=== PATIENT | male | born 1940 | race Caucasian/White ===

== ENCOUNTER → 2017-12-06 08:14 | Outpatient (CLI) | payer MEDICARE, OTHER, SELFPAY ==
[2017-12-06 08:56] LABS: Absolute Lymphocyte Count 1.44 X10^3/ul (0.83-4.51); Absolute Neutrophil Count 4.2 X10^3/uL (2.0-7.7); Basophil# 0.02 X10^3/uL; Basophil% 0.3 % (0-1); Eosinophil# 0.24 X10^3/uL; Eosinophils% 3.6 % (0-5); Hematocrit 48.2 % (40-54); Hemoglobin 15.7 g/dl (13.0-16.5); Lymphocyte # 1.44 X10^3/ul (4.0); Lymphocyte % 21.7 % (19-41); Mean Corp Hgb Conc 32.6 g/gl (32-36); Mean Corpuscular Hgb 28.9 pg (27.0-32.0); Mean Corpuscular Volume 88.8 fL (80-94); Mean Platelet Vol. 10.6 fl (6.2-12.0); Monocyte# 0.67 X10^3/uL; Monocyte% 10.1 % (0-10); Neutrophil # 4.23 X10^3/uL (2.7-7.7); Neutrophil % 63.8 % (47-70); Platelet Count 207 K/mm3 (150-450); RBC Distribution Width CV 14.1 % (11.6-14.6); RBC Distribution Width SD 45.5 fl (35.1-43.9); Red Blood Count 5.43 M/mm3 (4.6-6.2); White Blood Count 6.6 K/mm3 (4.4-11.0)
[2017-12-06 08:59] LABS: POSITIVE COUNT NO; POSITIVE DIFFERENTIAL NO; POSITIVE MORPHOLOGY NO
[2017-12-06 09:22] LABS: ALB/GLOB Ratio 0.9 RATIO (0.9-2.4); AST(SGOT) 23 U/L (15-37); Alanine Aminotransfer ALT/SGPT 26 U/L (16-61); Albumin, Serum 3.3 g/dL (3.2-5.0); Alkaline Phosphatase 69 U/L (45-117); Anion Gap 7 (5-15); BUN 16 mg/dL (7-18); BUN/Creat Ratio 16.9 RATIO (10-20); Calcium,Total 8.1 mg/dL (8.5-10.1); Chloride 106 mmol/L (98-107); Cholesterol 124 mg/dL (200); Creatinine, Serum 0.95 mg/dL (0.70-1.30); EST Glomerular Filtration Rate 82 mL/min (>60); Est Glom Filt Rate - Afr Amer 100 mL/min (>60); Globulin 3.5 g/dL (2.2-4.2); Glucose 119 mg/dL (74-106); High Density Lipoprotein 46 mg/dL; PSA,Total - Annual Screen 1.67 ng/mL (0.00-4.00); Potassium 3.7 mmol/L (3.5-5.1); Protein, Total 6.8 g/dL (6.4-8.2); Sodium Level 140 mmol/L (136-145); Triglycerides 93 mg/dL; Very Low Density Lipoprotein 19 mg/dL (5-40)
[2017-12-06 09:28] LABS: Vitamin D,25 Hydroxy 81.7 ng/mL (29.95-100.01)
== END ==
PROVIDERS: Family Provider Internal Medicine; PCP Internal Medicine; Visit Provider Internal Medicine
DX: Z12.5 Encounter for screening for malignant neoplasm of prostate (principal); E78.00 Pure hypercholesterolemia, unspecified; E55.9 Vitamin D deficiency, unspecified; I11.9 Hypertensive heart disease without heart failure
CPT/HCPCS: 36415; 80053; 80061; 82306; 84153; 85025; G0103

== ENCOUNTER 2017-12-10 17:22 | Emergency (ER) | payer OTHER, MEDICARE, SELFPAY ==
[2017-12-10 17:24] VITALS: BP 157/92; PULSE 78; RESP 16; TEMP 37.1; O2SAT 94; BMI 24.3
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
[2017-12-10] MEDS: Acetaminophen 500 MG Tablet 1000 MG PO (19:24)
[2017-12-10 19:25] VITALS: BP 169/107; PULSE 86; RESP 16; O2SAT 94
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
[2017-12-10 21:11] VITALS: BP 148/102; PULSE 75; RESP 16; O2SAT 94
== END 2017-12-10 21:15 | disposition home or self-care (01) ==
PROVIDERS: Emergency Provider Emergency Medicine; Family Provider Internal Medicine; PCP Internal Medicine
DX: S01.01XA Laceration without foreign body of scalp, initial encounter (principal); V49.88XA Car occupant (driver) (passenger) injured in other specified transport accidents, initial encounter; Y93.89 Activity, other specified; Y92.410 Unspecified street and highway as the place of occurrence of the external cause; I10 Essential (primary) hypertension; Z79.899 Other long term (current) drug therapy
CPT/HCPCS: 12004; 70450; 99285

== ENCOUNTER → 2018-04-12 07:53 | Outpatient (CLI) | payer MEDICARE, OTHER, SELFPAY ==
[2018-04-12 07:58] LABS: Bacteria 0 SEEN /hpf (None Seen); Mucous, Urine 0 SEEN /hpf (<or=2+); Red Blood Cells-Urine 0 SEEN /hpf (0-5); Squamous Epithelial Cells - UA 0 SEEN /hpf (0-5); White Blood Cells 0 SEEN /hpf (0-5)
[2018-04-12 08:59] LABS: Absolute Lymphocyte Count 1.38 X10^3/ul (0.83-4.51); Absolute Neutrophil Count 3.1 X10^3/uL (2.0-7.7); Basophil# 0.02 X10^3/uL; Basophil% 0.4 % (0-1); Eosinophils% 5.5 % (0-5); Hematocrit 47.1 % (40-54); Hemoglobin 15.1 g/dl (13.0-16.5); Lymphocyte # 1.38 X10^3/ul (4.0); Lymphocyte % 25.2 % (19-41); Mean Corp Hgb Conc 32.1 g/gl (32-36); Mean Corpuscular Hgb 28.3 pg (27.0-32.0); Mean Corpuscular Volume 88.4 fL (80-94); Mean Platelet Vol. 10.6 fl (6.2-12.0); Monocyte# 0.66 X10^3/uL; Monocyte% 12.1 % (0-10); Neutrophil # 3.09 X10^3/uL (2.7-7.7); Neutrophil % 56.4 % (47-70); Platelet Count 228 K/mm3 (150-450); RBC Distribution Width CV 14.4 % (11.6-14.6); RBC Distribution Width SD 46.5 fl (35.1-43.9); Red Blood Count 5.33 M/mm3 (4.6-6.2); White Blood Count 5.5 K/mm3 (4.4-11.0)
[2018-04-12 09:00] LABS: Color, Urine Yellow (Yellow); Glucose, Dipstick Normal (Normal); Ketone-Dipstick Negative (Negative); Leukocyte Esterase-Dipstick Negative /ul (Negative); Nitrite-Dipstick Negative (Negative); Occult Blood-Urine Negative /ul (Negative); Protein-Dipstick Negative (Negative); Urine Bilirubin Dipstick Negative (Negative); Urine Clarity Clear (Clear); Urine Urobilinogen Normal (Normal)
[2018-04-12 09:01] LABS: POSITIVE COUNT NO; POSITIVE DIFFERENTIAL NO; POSITIVE MORPHOLOGY NO
[2018-04-12 09:21] LABS: Microalbumin,Random Urine 11.2 mg/L (NO RANGE EST.); Microalbumin:Creatinine Ratio 19.4 mg/g CRE (<30 mg/g CRE)
[2018-04-12 09:26] LABS: ALB/GLOB Ratio 1.1 RATIO (0.9-2.4); AST(SGOT) 24 U/L (15-37); Alanine Aminotransfer ALT/SGPT 30 U/L (16-61); Albumin, Serum 3.6 g/dL (3.2-5.0); Alkaline Phosphatase 67 U/L (45-117); Anion Gap 8 (5-15); BUN 13 mg/dL (7-18); BUN/Creat Ratio 15.3 RATIO (10-20); Calcium,Total 8.5 mg/dL (8.5-10.1); Chloride 106 mmol/L (98-107); Cholesterol 139 mg/dL (200); Creatinine, Serum 0.85 mg/dL (0.70-1.30); EST Glomerular Filtration Rate 93 mL/min (>60); Est Glom Filt Rate - Afr Amer 113 mL/min (>60); Globulin 3.4 g/dL (2.2-4.2); Glucose 106 mg/dL (74-106); High Density Lipoprotein 47 mg/dL; Potassium 3.9 mmol/L (3.5-5.1); Sodium Level 142 mmol/L (136-145); Triglycerides 67 mg/dL; Very Low Density Lipoprotein 13 mg/dL (5-40)
[2018-04-12 09:31] LABS: Hemoglobin A1c 6.2 % (4.2-6.3)
[2018-04-13 08:34] LABS: Vitamin D,25 Hydroxy 50.2 ng/mL (29.95-100.01)
== END ==
PROVIDERS: Family Provider Internal Medicine; PCP Internal Medicine; Visit Provider Internal Medicine
DX: E78.4 Other hyperlipidemia (principal); I11.9 Hypertensive heart disease without heart failure; E55.9 Vitamin D deficiency, unspecified; E11.9 Type 2 diabetes mellitus without complications
CPT/HCPCS: 36415; 80053; 80061; 81001; 82043; 82306; 82570; 83036; 85025

== ENCOUNTER → 2018-06-14 09:49 | Outpatient (CLI) | payer MEDICARE, OTHER, SELFPAY ==
--- NOTE | 2018-06-14 09:52 | CDU_ITS ---
Reason For Study: stenosis Rt. Velocities/BP Lt. Velocities/BP Prox CCA 92.6/12.9 cm/sec. Prox CCA 90.9/15.8 cm/sec. Mid CCA 68.6/14.7 cm/sec. Mid CCA 80.3/17.0 cm/sec. Dist CCA 57.5/15.2 cm/sec. Dist CCA 63.9/14.1 cm/sec. Prox ICA 45.1/11.7 cm/sec. Prox ICA 59.8/14.7 cm/sec. Mid ICA 47.5/17.0 cm/sec. Mid ICA 56.9/19.3 cm/sec. Dist ICA 64.5/22.9 cm/sec. Dist ICA 52.2/17.0 cm/sec. Rt. ICA/CCA = .9. Lt. ICA/CCA = .7. Prox ECA 57.5/9.38 cm/sec. Prox ECA 76.2/11.7 cm/sec. Rt. Vert. 43.4/13.5 cm/sec. Lt. Vert. 29.1/7.46 cm/sec. Right Extracranial There is intimal thickening but no significant atherosclerotic plaque noted in the right common carotid artery. There is heterogeneous, irregular atherosclerotic plaque noted in the right internal carotid artery. There is intimal thickening but no significant atherosclerotic plaque noted in the right external carotid artery. Antegrade flow is noted in the right vertebral artery. Left Extracranial There is intimal thickening but no significant atherosclerotic plaque noted in the left common carotid artery. There is intimal thickening but no significant atherosclerotic plaque noted in the left internal carotid artery. There is intimal thickening but no significant atherosclerotic plaque noted in the left external carotid artery. Antegrade flow is noted in the left vertebral artery. There is heterogeneous, irregular atherosclerotic plaque noted in the left bulb. Hypoehoic area in the left thyroid measuring .408 x .753 cm. Area is non vascular. Procedure Carotid Duplex 97647. The exam was diagnostic. Exam performed in department. Interpretation Summary Mild (<50%) stenosis right extracranial internal carotid. No significant atherosclerotic plaque or stenosis noted in the left internal carotid artery. Flow within the vertebral arteries is antegrade bilaterally. Heterogeneous, irregular atherosclerotic plaque is noted in the left carotid bulb, which does not appear to be hemodynamically significant. A non-vascular, hypoechoic structure is noted in the left thyroid lobe, measuring 0.408 cm x 0.753 cm. Clinical correlation is advised. Ordering Physician: Adrienne Cummings Referring Physician: Adrienne Cummings Performed By: Desmond Argueta RVT
== END ==
PROVIDERS: Family Provider Internal Medicine; PCP Internal Medicine; Referring Provider Internal Medicine; Visit Provider Internal Medicine
DX: I65.23 Occlusion and stenosis of bilateral carotid arteries (principal)
CPT/HCPCS: 93880

== ENCOUNTER → 2018-06-30 10:35 | Outpatient (CLI) | payer MEDICARE, OTHER, SELFPAY ==
--- NOTE | 2018-06-30 10:37 | US_ITS ---
STUDY: THYROID ULTRASOUND REASON FOR EXAM: Male, 78 years old. Thyroid nodule TECHNIQUE: Transverse and longitudinal ultrasound evaluation of the thyroid was performed with real-time and static perez-scale imaging. COMPARISON: None. FINDINGS: RIGHT LOBE: The right lobe of the thyroid gland measures 3.8 x 1.9 x 1.2 cm. There is a heterogeneous echotexture. There is a cystic nodule in the mid pole measuring 3.6 x 1.9 x 3.8 mm. LEFT LOBE: The left lobe of the thyroid gland measures 4.5 x 1.5 x 1.5 cm. There is a heterogeneous echotexture. There is a hypoechoic nodule in the upper pole measuring 6.2 x 4.3 x 5.3 mm. ISTHMUS: The isthmus measures 8.0 mm. The regional lymph nodes are unremarkable. US/Thyroid IMPRESSION: The thyroid is diffusely heterogeneous. There are small nodules in each lobe without suspicious features. A follow-up thyroid ultrasound can be obtained in six months to document stability. Electronically Signed: Kimberly Davis MD at 0:35 EDT Tel Direct: [phone], Service support ,
== END ==
PROVIDERS: Family Provider Internal Medicine; PCP Internal Medicine; Referring Provider Internal Medicine; Visit Provider Internal Medicine
DX: E04.1 Nontoxic single thyroid nodule (principal)
CPT/HCPCS: 76536

== ENCOUNTER → 2018-09-06 13:32 | Outpatient (CLI) | payer SELFPAY ==
--- NOTE | 2018-09-06 13:38 | CT_ITS ---
STUDY: CT CHEST WITHOUT CONTRAST REASON FOR EXAM: Male, 78 years old. Calcium scoring examination. Cardiac over read examination. RADIATION DOSAGE (If Supplied By Facility): CTDIvol = ( 12.19 ) mGy, DLP = ( 268.17 ) mGycm TECHNIQUE: Transaxial imaging was performed without the administration of intravenous contrast material. Individualized dose optimization techniques were used for this CT. COMPARISON: None. FINDINGS: The lungs are normal. There is no demonstrated pleural abnormality. There are calcifications of the coronary arteries. There are multiple small lymph nodes within the mediastinum, which are normal in size and morphology most compatible with reactive lymph hyperplasia. Normal hilar regions. Normal unenhanced pulmonary arteries. There is atherosclerotic calcification of the aortic arch . Normal osseous structures. There is no demonstrated abnormality of the visualized upper abdomen. CT/Limited Chest CT w/CCTA IMPRESSION: No acute abnormality is seen. Electronically Signed: Livan Meléndez MD at 14:38 EST Tel [phone], Service support ,
[2018-09-06 13:55] VITALS: BP 164/83; PULSE 53; RESP 16; O2SAT 97; BMI 26.2
--- NOTE | 2018-09-07 18:33 | CA.SCORE ---
Calcium Scoring Date of Study:: 09/07/18 Coronary Calcium Scoring: Coronary calcium score: 30.2 Conclusion: Coronary calcium score: 30.2 Results: The patient underwent high-resolution CT imaging of the chest on 09/06/2018 with attention to the coronary arteries. The coronary arteries were analyzed for the presence and extent of coronary artery calcification using coronary calcification quantification software. The patient was reported as tolerating the procedure well. The coronary calcium was reported at 30.2. A coronary calcium score of 30.2, according to pre-published reference tables, would be indicative of mild plaque burden and the likelihood of minimal to mild coronary artery stenosis. Impression: Coronary calcium score: 30.2 This note was generated with [employer]otion Mediaation software. It may contain incorrect words, spelling, and punctuation that were not noted in checking the note before signing.
== END ==
PROVIDERS: Family Provider Internal Medicine; PCP Internal Medicine; Referring Provider Internal Medicine; Visit Provider Internal Medicine
DX: E78.5 Hyperlipidemia, unspecified (principal)
CPT/HCPCS: 75571; 76380

== ENCOUNTER → 2018-12-07 08:46 | Outpatient (CLI) | payer MEDICARE, OTHER, SELFPAY ==
[2018-09-06 13:55] VITALS: BMI 26.2
[2018-12-07 09:07] LABS: Absolute Lymphocyte Count 1.44 X10^3/ul (0.83-4.51); Absolute Neutrophil Count 2.6 X10^3/uL (2.0-7.7); Basophil# 0.02 X10^3/uL; Basophil% 0.4 % (0-1); Eosinophil# 0.18 X10^3/uL; Eosinophils% 3.8 % (0-5); Hematocrit 46.5 % (40-54); Hemoglobin 15.5 g/dl (13.0-16.5); Lymphocyte # 1.44 X10^3/ul (4.0); Lymphocyte % 30.8 % (19-41); Mean Corp Hgb Conc 33.3 g/gl (32-36); Mean Corpuscular Hgb 29.2 pg (27.0-32.0); Mean Corpuscular Volume 87.6 fL (80-94); Mean Platelet Vol. 10.5 fl (6.2-12.0); Monocyte# 0.48 X10^3/uL; Monocyte% 10.3 % (0-10); Neutrophil # 2.55 X10^3/uL (2.7-7.7); Neutrophil % 54.5 % (47-70); Platelet Count 216 K/mm3 (150-450); RBC Distribution Width CV 14.3 % (11.6-14.6); RBC Distribution Width SD 45.7 fl (35.1-43.9); Red Blood Count 5.31 M/mm3 (4.6-6.2); White Blood Count 4.7 K/mm3 (4.4-11.0)
[2018-12-07 09:09] LABS: POSITIVE COUNT NO; POSITIVE DIFFERENTIAL NO; POSITIVE MORPHOLOGY NO
[2018-12-07 09:32] LABS: Hemoglobin A1c 6.3 % (4.2-6.3)
[2018-12-07 09:33] LABS: ALB/GLOB Ratio 1.2 RATIO (0.9-2.4); AST(SGOT) 26 U/L (15-37); Alanine Aminotransfer ALT/SGPT 28 U/L (16-61); Albumin, Serum 3.5 g/dL (3.2-5.0); Alkaline Phosphatase 74 U/L (45-117); Anion Gap 3 (5-15); BUN 12 mg/dL (7-18); BUN/Creat Ratio 13.5 RATIO (10-20); Calcium,Total 8.1 mg/dL (8.5-10.1); Chloride 107 mmol/L (98-107); Cholesterol 124 mg/dL (200); Creatinine, Serum 0.89 mg/dL (0.70-1.30); EST Glomerular Filtration Rate 89 mL/min (>60); Est Glom Filt Rate - Afr Amer 107 mL/min (>60); Glucose 107 mg/dL (74-106); High Density Lipoprotein 51 mg/dL; PSA,Total - Annual Screen 1.62 ng/mL (0.00-4.00); Protein, Total 6.5 g/dL (6.4-8.2); Sodium Level 139 mmol/L (136-145); Triglycerides 75 mg/dL; Very Low Density Lipoprotein 15 mg/dL (5-40)
== END ==
PROVIDERS: Family Provider Internal Medicine; PCP Internal Medicine; Referring Provider Internal Medicine; Visit Provider Internal Medicine
DX: Z12.5 Encounter for screening for malignant neoplasm of prostate (principal); E78.00 Pure hypercholesterolemia, unspecified; E11.9 Type 2 diabetes mellitus without complications
CPT/HCPCS: 36415; 80053; 80061; 83036; 84153; 85025; G0103

== ENCOUNTER → 2018-12-27 08:30 | Outpatient (CLI) | payer MEDICARE, OTHER, SELFPAY ==
[2018-09-06 13:55] VITALS: BMI 26.2
== END ==
PROVIDERS: Family Provider Internal Medicine; PCP Internal Medicine; Referring Provider Nurse Practitioner Family; Visit Provider Nurse Practitioner Family
DX: I49.3 Ventricular premature depolarization (principal)
CPT/HCPCS: 93225; 93226

== ENCOUNTER 2019-01-16 07:20 | Day surgery (SDC) | payer MEDICARE, OTHER, SELFPAY ==
[2018-12-30 08:40] VITALS: BMI 26.2
[2019-01-16] VITALS (8 sets, daily range): BP systolic 136–153; BP diastolic 77–81; PULSE 52–63; RESP 16; TEMP 36.3–36.7; O2SAT 92–98; BMI 25.5
--- NOTE | 2019-01-16 08:17 | PCM.HP.BLA ---
History and Physical Date of Admission: 01/16/19 [facility] [address] [place] [address] OFFICE VISIT Date of Service: 12/30/18 MR#: [id number] Acct: [id number] Name: JAIME BERRIOS Rep #: [id number] : 1940 Provider: Darian Colon MD Age/Sex: 78/M Location: [facility] Status: Signed Intake Vital Signs 12/30/18 Body Mass Index (BMI) 26.2 12/30/18 Height 5 ft 9 in 12/30/18 Weight: 178 lb 12/30/18 Body Mass Index (BMI) 26.2 12/30/18 Blood Pressure 139/74 H 12/30/18 Blood Pressure Location Rt brachial 12/30/18 Blood Pressure Position Sitting 12/30/18 Respiratory Rate 18 12/30/18 Pulse Rate 51 L 12/30/18 Pulse Source Monitor 12/30/18 Temperature 98.2 F 12/30/18 Temperature Source Oral 12/30/18 Pulse Ox 95 12/30/18 Oxygen Delivery Method room air Intake Visit Reasons: HX of Colon Polyps 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 People Required: No Is patient in pain?: No Allergies No Known Allergies Allergy (Verified 12/30/18 08:38) Medications Amlodipine [Norvasc] 10 mg PO DAILY 07/21/13 [History Confirmed 12/30/18] Lisinopril [Zestril] 20 mg PO BID 07/21/13 [History Confirmed 12/30/18] Simvastatin [Zocor] 40 mg PO QHS 07/21/13 [History Confirmed 12/30/18] metoprolol succinate ER 50 mg tablet,extended release 24 hr 50 mg PO QDAY #90 tab 02/21/18 [Rx Confirmed 12/30/18] cholecalciferol (vitamin D3) 4,000 unit capsule 4,000 unit PO DAILY 12/30/18 [History Confirmed 12/30/18] omega 0-ieg-jaj-fish oil 1,000 mg (120 mg-180 mg) capsule 1 cap PO DAILY 12/30/18 [History Confirmed 12/30/18] [facility] Medical History Wide-complex tachycardia (Acute) Carotid stenosis (Acute) Hyperlipidemia (Chronic) Premature ventricular contraction (Acute) HTN (hypertension) (Chronic) TIA (transient ischemic attack) (Acute) BPH without urinary obstruction (Chronic) Surgical History History of hernia repair (Resolved) History of prostate surgery (Resolved) History of transurethral resection of prostate (Resolved) Family History Mother CAD (coronary artery disease) Social History Smoking Status: Never smoker alcohol intake: current details: occasional substance use type: does not use HPI HPI HPI: JAIME BERRIOS, is a 78 M who presents to the office today for HPI HPI HPI: JAIME BERRIOS, is a 78 M who presents to the office today for evaluation for colonoscopy. Patient had a colonoscopy in October 2015 where he was noted to have tubular adenoma of the transverse colon. Patient states that he has been moving his bowels. Patient states that he has had no abdominal pain. And he has had no melena or hematochezia. ROS General General: No weight change, appetite, fatigue, colon cancer, breast cancer or weakness HEENT HEENT: No difficulty swallowing, eye injury, eye surgery, swollen glands or hoarseness Endo Endocrine: No thyroid disease, diabetes mellitus, thyroid cancer, Hair loss, heat intolerance or cold intolerance Skin Skin: No rash or changing moles Breast Breast: No left breast lump, right breast lump, nipple discharge, breast pain, abnormal mammogram, abnormal US or breast enlargement Musc Musculoskeletal: No back problems, arthritis, rheumatoid arthritis, gout or joint pain Cardio Cardiovascular: No murmur, pacemaker, heart disease, atrial fibrillation, high blood pressure, heart attack, heart stent, palpitations, shortness of breat with exertion or chest pain Psych Psychiatric: No depression, anxiety or hearing voices Resp Respiratory: No shortness of breath, No sleep apnea, No cough, No COPD, No asthma, No emphysema, No wheezing Gastro Gastrointestinal: No abdominal pain, No nausea or vomiting, No diarrhea, No constipation, No blood in stool, No acid reflux, No hemorrhoids, No ulcers, No gallbladder problem, No black,tarry stools Levi Hematologic: No blood thinners, No blood disorders, No bleeding, No anemia, No blood clots Neuro Neurologic: No system reviewed and no additional complaints, except as docu, No as per HPI, No abnormal walking, No abnormal hearing, No abnormal movements, No abnormal speech, No behavioral changes, No burning sensations, No confusion, No seizure-like activity, No unsteadiness, No dizziness, No localized weakness, No frequent falls, No headache(s), No lack of coordination, No loss of vision, No memory loss, No numbness, No other visual disturbances, No radiating pain, No restless legs, No sensory deficit, No fainting, No tingling, No tremor(s), No weakness, No other Exam Const General: no acute distress, well developed, well hydrated Orientation: oriented to person, oriented to place, oriented to time [facility] Head: normocephalic, atraumatic Ears: external ears normal Mouth: moist mucous membranes Eyes Sclera: sclerae normal Pupils: normal by confrontation Neck Neck: no lymphadenopathy noted Neck mass: No Thyroid: thyroid normal, symmetrical Chest Chest palpation & inspection: normal inspection of the chest Breast Palpation: No nipple discharge Resp Effort & Inspection: normal respiratory effort Auscultation: clear to auscultation bilaterally Percussion: percussion normal Cardio Rate: regular rate Rhythm: regular rhythm Heart Sounds: no murmurs GI Palpation: soft, no hepatosplenomegaly, no masses, nontender Rectal Exam: other Other: Rectal exam deferred. Extrem General: normal to inspection, no clubbing, cyanosis or edema Assessment & Plan Problems 1. History of colon polyps Z86.010 Plan I have discussed the above with the patient. I have offered the patient colonoscopy for evaluation. I have explained the risks/benefits of the procedure and described the procedure. I have discussed the risks with the patient, including but not limited to: infection, bleeding, perforation of the GI tract requiring emergency surgery, inability to complete the procedure, injury to any internal organs, complications of anesthesia, etc. - the patient understands and agrees to proceed. I have answered all the patient's questions to the patient's satisfaction and the patient has no further questions. The patient has been given instructions for the colon cleansing preparation. Medications New: omega 2-dci-rlm-fish oil 1,000 mg (120 mg-180 mg) (Fish Oil) 1 cap PO DAILY cholecalciferol (vitamin D3) 4,000 units PO DAILY Coding Level of Care Code Off vis,est,level 3 Diagnoses History of colon polyps Z86.010 12/30/18 1125 <Electronically signed by Darian Colon MD> Date Darian Colon MD Cosign Signature: Date (if applicable) CC: Adrienne Cummings DO ~ I have re-examined the patient. There are no clinical changes since date of exam.
--- NOTE | 2019-01-16 08:52 | OP.ENDO_ITS ---
01/16/2019 Adrienne Cummings Re : Colonoscopy procedure for Edilson Cummings This procedure was performed on Wednesday, January 16, 2019. My impressions and recommendations are as follows: Impressions : - Diverticulosis in the sigmoid colon and in the descending colon. No specimens collected. - The examination was otherwise normal. Recommendations : - Discharge patient to home. - Resume previous diet. - Continue present medications. - Repeat colonoscopy in 10 years for screening purposes. - Return to primary care physician PRN. My findings are described in the full procedure note, which is enclosed. If I can be of further assistance, please feel free to contact me at Doctor phone number(s): , Fax: [phone], Work: . Sincerely, MD Darian Clement MD 01/16/2019 8:52:17 AM This report has been signed electronically.
== END 2019-01-16 09:49 | disposition home or self-care (01) ==
LOC: EN 07:21 → AC 07:22
PROVIDERS: Family Provider Internal Medicine; PCP Internal Medicine; Referring Provider Internal Medicine; Visit Provider Surgery
PROC: 0DJD8ZZ Inspection of Lower Intestinal Tract, Via Natural or Artificial Opening Endoscopic (ICD-10-PCS; CPT 45378; principal; 2019-01-16 08:25)
DX: Z86.010 Personal history of colon polyps (principal); K57.30 Diverticulosis of large intestine without perforation or abscess without bleeding; E78.00 Pure hypercholesterolemia, unspecified; I49.1 Atrial premature depolarization; I49.3 Ventricular premature depolarization; I65.29 Occlusion and stenosis of unspecified carotid artery; I10 Essential (primary) hypertension; N40.0 Benign prostatic hyperplasia without lower urinary tract symptoms; Z79.899 Other long term (current) drug therapy; Z86.73 Personal history of transient ischemic attack (TIA), and cerebral infarction without residual deficits
CPT/HCPCS: G0105; J7120; J1610

== ENCOUNTER → 2019-04-12 07:49 | Outpatient (CLI) | payer MEDICARE, OTHER, SELFPAY ==
[2019-01-19 14:26] VITALS: BMI 25.0
[2019-04-12 08:32] LABS: Absolute Lymphocyte Count 1.21 X10^3/uL (0.83-4.51); Absolute Neutrophil Count 3.4 X10^3/uL (2.0-7.7); Basophil# 0.04 X10^3/uL; Basophil% 0.7 % (0-1); Eosinophils% 3.6 % (0-5); Hematocrit 45.6 % (40-54); Hemoglobin 14.8 g/dL (13.0-16.5); Lymphocyte # 1.21 X10^3/ul (4.0); Mean Corp Hgb Conc 32.5 g/dL (32-36); Mean Corpuscular Volume 89.4 fL (80-94); Mean Platelet Vol. 10.6 fl (6.2-12.0); Monocyte# 0.59 X10^3/uL; Monocyte% 10.7 % (0-10); NRBC Flagged by Analyzer 0 % (0-5); Neutrophil # 3.44 X10^3/uL (2.7-7.7); Neutrophil % 62.6 % (47-70); Platelet Count 221 K/mm3 (150-450); RBC Distribution Width CV 13.8 % (11.6-14.6); RBC Distribution Width SD 44.7 fl (35.1-43.9); White Blood Count 5.5 K/mm3 (4.4-11.0)
[2019-04-12 08:53] LABS: Microalbumin,Random Urine 7.2 mg/L (NO RANGE EST.); Microalbumin:Creatinine Ratio 20.2 mg/g CRE (<30 mg/g CRE)
[2019-04-12 09:01] LABS: Vitamin D,25 Hydroxy 35.4 ng/mL (29.95-100.01)
[2019-04-12 09:02] LABS: Hemoglobin A1c 6.3 % (4.2-6.3)
[2019-04-12 09:04] LABS: AST(SGOT) 23 U/L (15-37); Alanine Aminotransfer ALT/SGPT 29 U/L (16-61); Albumin, Serum 3.2 g/dL (3.2-5.0); Alkaline Phosphatase 65 U/L (45-117); Anion Gap 8 (5-15); BUN 18 mg/dL (7-18); BUN/Creat Ratio 21.6 RATIO (10-20); Chloride 106 mmol/L (98-107); Cholesterol 135 mg/dL (200); Creatinine, Serum 0.83 mg/dL (0.70-1.30); EST Glomerular Filtration Rate 95 mL/min (>60); Est Glom Filt Rate - Afr Amer 115 mL/min (>60); Globulin 3.2 g/dL (2.2-4.2); Glucose 111 mg/dL (74-106); High Density Lipoprotein 49 mg/dL; Protein, Total 6.4 g/dL (6.4-8.2); Sodium Level 142 mmol/L (136-145); Thyroid Stim Hormone (TSH) 1.44 uIU/mL (0.358-3.74); Triglycerides 81 mg/dL; Very Low Density Lipoprotein 16 mg/dL (5-40)
== END ==
PROVIDERS: Family Provider Internal Medicine; PCP Internal Medicine; Referring Provider Internal Medicine; Visit Provider Internal Medicine
DX: E55.9 Vitamin D deficiency, unspecified (principal); E04.1 Nontoxic single thyroid nodule; E11.9 Type 2 diabetes mellitus without complications; E78.00 Pure hypercholesterolemia, unspecified
CPT/HCPCS: 36415; 80053; 80061; 82043; 82306; 82570; 83036; 84443; 85025

== ENCOUNTER → 2019-07-05 07:59 | Outpatient (CLI) | payer MEDICARE, OTHER, SELFPAY ==
[2019-01-19 14:26] VITALS: BMI 25.0
--- NOTE | 2019-07-05 08:02 | CDU_ITS ---
Reason For Study: STENOSIS Rt. Velocities/BP Lt. Velocities/BP Prox CCA 89/15 cm/sec. Prox CCA 96/21 cm/sec. Mid CCA 79/13 cm/sec. Mid CCA 105/21 cm/sec. Dist CCA 58/13 cm/sec. Dist CCA 76/19 cm/sec. Prox ICA 49/12 cm/sec. Prox ICA 69/13 cm/sec. Mid ICA 62/20 cm/sec. Mid ICA 62/18 cm/sec. Dist ICA 54/17 cm/sec. Dist ICA 80/24 cm/sec. Rt. ICA/CCA = .7. Lt. ICA/CCA = .8. Prox ECA 72/7 cm/sec. Prox ECA 107/16 cm/sec. Rt. Vert. 62/16 cm/sec. Lt. Vert. 46/8 cm/sec. Right Extracranial There is homogeneous, smooth atherosclerotic plaque noted in the right common carotid artery. There is heterogeneous, smooth atherosclerotic plaque noted in the right internal carotid artery. There is homogeneous, smooth atherosclerotic plaque noted in the right external carotid artery. Antegrade flow is noted in the right vertebral artery. Left Extracranial There is homogeneous, smooth atherosclerotic plaque noted in the left common carotid artery. There is heterogeneous, irregular atherosclerotic plaque noted in the left internal carotid artery. There is homogeneous, smooth atherosclerotic plaque noted in the left external carotid artery. Antegrade flow is noted in the left vertebral artery. Procedure Carotid Duplex [id number]. Exam performed in department. Interpretation Summary Mild (<50%) stenosis right extracranial internal carotid. Mild (<50%) stenosis left extracranial internal carotid. Flow within the vertebral arteries is antegrade bilaterally. Ordering Physician: Adrienne Cummings Referring Physician: Adrienne Cummings Performed By: Mily Spears, RDCS, RVT
== END ==
PROVIDERS: Family Provider Internal Medicine; PCP Internal Medicine; Referring Provider Internal Medicine; Visit Provider Internal Medicine
DX: I65.23 Occlusion and stenosis of bilateral carotid arteries (principal); E04.1 Nontoxic single thyroid nodule
CPT/HCPCS: 93880

== ENCOUNTER → 2019-07-18 08:29 | Outpatient (CLI) | payer MEDICARE, OTHER, SELFPAY ==
[2019-01-19 14:26] VITALS: BMI 25.0
--- NOTE | 2019-07-18 08:31 | US_ITS ---
STUDY: THYROID ULTRASOUND REASON FOR EXAM: Male, 79 years old. Nodule TECHNIQUE: Ultrasound evaluation of the thyroid was performed with real-time and static perez-scale imaging. COMPARISON: None. FINDINGS: Right Lobe: 4.6 x 1.3 x 1.7 cm. Homogeneous. Normal Doppler flow. Isthmus: 3 mm. Left lobe: 4.3 x 1.4 x 1.4 cm. Homogeneous. Normal Doppler flow. Nodules: Thyroid nodules measuring greater than 5mm are present, as described below: #1- Location: Right lower pole Size: 7 x 7 x 5 mm. Composition: Solid or almost completely solid (2 pts) Echogenicity: Hypoechoic (2 pts) Shape: Wider than tall (0 pts) Margins: Smooth (0 pts) Echogenic Foci: None or large comet-tail artifacts (0 pts) US/Thyroid IMPRESSION: 7 mm TR for nodule right thyroid which does not meet the criteria for tissue sampling as listed below. Other smaller non-clinically significant nodules are also identified. TR4: Moderately suspicious for malignancy- FNA biopsy if nodule at least 1.5cm; follow if at least 1 cm. Follow-up is recommended at 1, 2, 3 and 5 years. Electronically Signed: Jonatan Simon, at 17:13 EST Tel , Service support ,
== END ==
PROVIDERS: Family Provider Internal Medicine; PCP Internal Medicine; Referring Provider Internal Medicine; Visit Provider Internal Medicine
DX: I47.2 Ventricular tachycardia (principal); I49.3 Ventricular premature depolarization; I65.23 Occlusion and stenosis of bilateral carotid arteries; E04.1 Nontoxic single thyroid nodule
CPT/HCPCS: 76536; 93225; 93226

== ENCOUNTER → 2019-12-13 08:20 | Outpatient (CLI) | payer MEDICARE, OTHER, SELFPAY ==
[2019-09-13 11:01] VITALS: BMI 25.5
[2019-12-13 09:24] LABS: Absolute Lymphocyte Count 1.27 X10^3/uL (0.83-4.51); Absolute Neutrophil Count 3.5 X10^3/uL (2.0-7.7); Basophil# 0.04 X10^3/uL; Basophil% 0.7 % (0-1); Eosinophil# 0.19 X10^3/uL; Eosinophils% 3.4 % (0-5); Lymphocyte # 1.27 X10^3/ul (4.0); Lymphocyte % 22.4 % (19-41); Mean Corp Hgb Conc 31.9 g/dL (32-36); Mean Corpuscular Hgb 28.3 pg (27.0-32.0); Mean Corpuscular Volume 88.7 fL (80-94); Mean Platelet Vol. 10.7 fl (6.2-12.0); Monocyte# 0.64 X10^3/uL; Monocyte% 11.3 % (0-10); NRBC Flagged by Analyzer 0 % (0-5); Neutrophil # 3.48 X10^3/uL (2.7-7.7); Neutrophil % 61.5 % (47-70); Platelet Count 229 K/mm3 (150-450); RBC Distribution Width CV 13.7 % (11.6-14.6); RBC Distribution Width SD 44.6 fl (35.1-43.9); White Blood Count 5.7 K/mm3 (4.4-11.0)
[2019-12-13 09:44] LABS: Hemoglobin A1c 6.3 % (4.2-6.3)
[2019-12-13 09:46] LABS: ALB/GLOB Ratio 1.1 RATIO (0.9-2.4); AST(SGOT) 26 U/L (15-37); Alanine Aminotransfer ALT/SGPT 30 U/L (16-61); Albumin, Serum 3.5 g/dL (3.2-5.0); Alkaline Phosphatase 73 U/L (45-117); Anion Gap 4 (5-15); BUN 15 mg/dL (7-18); BUN/Creat Ratio 16.4 RATIO (10-20); Calcium,Total 8.6 mg/dL (8.5-10.1); Chloride 107 mmol/L (98-107); Cholesterol 122 mg/dL (200); Creatinine, Serum 0.92 mg/dL (0.70-1.30); EST Glomerular Filtration Rate 85 mL/min (>60); Est Glom Filt Rate - Afr Amer 103 mL/min (>60); Globulin 3.3 g/dL (2.2-4.2); Glucose 116 mg/dL (74-106); High Density Lipoprotein 51 mg/dL; PSA,Total - Annual Screen 2.04 ng/mL (0.00-4.00); Protein, Total 6.8 g/dL (6.4-8.2); Sodium Level 141 mmol/L (136-145); Triglycerides 83 mg/dL; Very Low Density Lipoprotein 17 mg/dL (5-40)
[2019-12-13 09:49] LABS: Microalbumin,Random Urine 15.8 mg/L (NO RANGE EST.); Microalbumin:Creatinine Ratio 14.6 mg/g CRE (<30 mg/g CRE)
== END ==
PROVIDERS: PCP Internal Medicine; Referring Provider Internal Medicine; Visit Provider Internal Medicine
DX: E55.9 Vitamin D deficiency, unspecified (principal); E11.9 Type 2 diabetes mellitus without complications; I65.23 Occlusion and stenosis of bilateral carotid arteries; I11.9 Hypertensive heart disease without heart failure; Z12.5 Encounter for screening for malignant neoplasm of prostate
CPT/HCPCS: 36415; 80053; 80061; 82043; 82306; 82570; 83036; 84153; 85025; G0103

== ENCOUNTER → 2020-06-18 08:53 | Outpatient (CLI) | payer MEDICARE, OTHER, SELFPAY ==
[2020-03-18 08:26] VITALS: BMI 24.8
[2020-06-18 09:31] LABS: Absolute Lymphocyte Count 1.36 X10^3/uL (0.83-4.51); Basophil# 0.04 X10^3/uL; Basophil% 0.6 % (0-1); Eosinophil# 0.22 X10^3/uL; Eosinophils% 3.5 % (0-5); Hematocrit 47.7 % (40-54); Hemoglobin 15.1 g/dL (13.0-16.5); Lymphocyte # 1.36 X10^3/ul (4.0); Lymphocyte % 21.7 % (19-41); Mean Corp Hgb Conc 31.7 g/dL (32-36); Mean Corpuscular Hgb 28.7 pg (27.0-32.0); Mean Corpuscular Volume 90.7 fL (80-94); Mean Platelet Vol. 10.2 fl (6.2-12.0); Monocyte# 0.63 X10^3/uL; Monocyte% 10.1 % (0-10); NRBC Flagged by Analyzer 0 % (0-5); Neutrophil # 3.97 X10^3/uL (2.7-7.7); Neutrophil % 63.5 % (47-70); Platelet Count 247 K/mm3 (150-450); RBC Distribution Width CV 13.6 % (11.6-14.6); RBC Distribution Width SD 45.9 fl (35.1-43.9); Red Blood Count 5.26 M/mm3 (4.6-6.2); White Blood Count 6.3 K/mm3 (4.4-11.0)
[2020-06-18 09:47] LABS: Microalbumin,Random Urine 36.9 mg/L (NO RANGE EST.); Microalbumin:Creatinine Ratio 21.1 mg/g CRE (<30 mg/g CRE)
[2020-06-18 09:55] LABS: AST(SGOT) 17 U/L (15-37); Alanine Aminotransfer ALT/SGPT 28 U/L (16-61); Albumin, Serum 3.4 g/dL (3.2-5.0); Alkaline Phosphatase 64 U/L (45-117); Anion Gap 4 (5-15); BUN 17 mg/dL (7-18); Calcium,Total 8.4 mg/dL (8.5-10.1); Chloride 106 mmol/L (98-107); Cholesterol 129 mg/dL (200); EST Glomerular Filtration Rate 87 mL/min (>60); Est Glom Filt Rate - Afr Amer 106 mL/min (>60); Globulin 3.3 g/dL (2.2-4.2); Glucose 119 mg/dL (74-106); High Density Lipoprotein 56 mg/dL; Potassium 3.9 mmol/L (3.5-5.1); Protein, Total 6.7 g/dL (6.4-8.2); Sodium Level 141 mmol/L (136-145); Triglycerides 85 mg/dL; Very Low Density Lipoprotein 17 mg/dL (5-40)
[2020-06-18 10:04] LABS: Vitamin D,25 Hydroxy 39.2 ng/mL
== END ==
PROVIDERS: PCP Internal Medicine; Visit Provider Internal Medicine
DX: I11.9 Hypertensive heart disease without heart failure (principal); E78.49 Other hyperlipidemia; E55.9 Vitamin D deficiency, unspecified; E11.9 Type 2 diabetes mellitus without complications
CPT/HCPCS: 36415; 80053; 80061; 82043; 82306; 82570; 83036; 85025

== ENCOUNTER → 2020-07-04 07:55 | Outpatient (CLI) | payer MEDICARE, OTHER, SELFPAY ==
[2020-03-18 08:26] VITALS: BMI 24.8
--- NOTE | 2020-07-04 07:57 | CDU_ITS ---
Reason For Study: STENOSIS Rt. Velocities/BP Lt. Velocities/BP Prox CCA 79.9/ 13.4 cm/sec. Prox CCA 80.9/ 8.3 cm/sec. Mid CCA 53.5/ 11.9 cm/sec. Mid CCA 73.2/ 12.7 cm/sec. Dist CCA 53.5/ 11.9 cm/sec. Dist CCA 62.2/ 9.5 cm/sec. Prox ICA 43.1/ 6.1 cm/sec. Prox ICA 51.1/ 9.2 cm/sec. Mid ICA 63.3/ 14.5 cm/sec. Mid ICA 62.5/ 19.7 cm/sec. Dist ICA 64.8/ 16.6 cm/sec. Dist ICA 70.5/ 19.5 cm/sec. Rt. ICA/CCA = 1.0. Lt. ICA/CCA = 1.0. Prox ECA 90.4/ 2.0 cm/sec. Prox ECA 88.6/ 6.2 cm/sec. Rt. Vert. 21.5/ 4.8 cm/sec. Lt. Vert. 30.5/ 4.8 cm/sec. Right Extracranial There is homogeneous, smooth atherosclerotic plaque noted in the right common carotid artery. There is heterogeneous, irregular atherosclerotic plaque noted in the right internal carotid artery. There is intimal thickening but no significant atherosclerotic plaque noted in the right external carotid artery. Antegrade flow is noted in the right vertebral artery. Left Extracranial There is homogeneous, smooth atherosclerotic plaque noted in the left common carotid artery. There is heterogeneous, irregular atherosclerotic plaque noted in the left internal carotid artery. There is intimal thickening but no significant atherosclerotic plaque noted in the left external carotid artery. Antegrade flow is noted in the left vertebral artery. Procedure Carotid Duplex [id number]. This is a Carotid Duplex examination using B-mode, color flow and specral Doppler. Exam performed in department. Interpretation Summary Mild (<50%) stenosis right extracranial internal carotid. Mild (<50%) stenosis left extracranial internal carotid. Flow within the vertebral arteries is antegrade bilaterally. Ordering Physician: Adrienne Cummings Referring Physician: Adrienne Cummings Performed By: More Osorio RVT and Student
--- NOTE | 2020-07-04 08:22 | US_ITS ---
STUDY: THYROID ULTRASOUND REASON FOR EXAM: Male, 80 years old. Nodules TECHNIQUE: Ultrasound evaluation of the thyroid was performed with real-time and static perez-scale imaging. COMPARISON: Comparison is made with prior study dated 07/18/2019. FINDINGS: RIGHT LOBE: The right lobe of the thyroid gland measures 4.6 cm x 1 cm x 1.7 cm. There is a heterogeneous echotexture. Once again, several small complex solid and cystic nodules are seen. The largest is in the upper lobe and measures 7 mm x 7 mm x 5 mm. This is essentially unchanged. LEFT LOBE: The left lobe of the thyroid gland measures 4.9 cm x 1.3 cm x 1.3 cm. There is a heterogeneous echotexture. Multiple small nodules. The largest measures 7 mm x 6 mm x 4 mm. This as a solid/cystic component. This lies in the upper pole. ISTHMUS: The isthmus measures 3.0 mm. The regional lymph nodes are normal. US/Thyroid IMPRESSION: Stable examination. Electronically Signed: Livan Meléndez, at 13:30 EST , Service support ,
== END ==
PROVIDERS: PCP Internal Medicine; Referring Provider Internal Medicine; Visit Provider Internal Medicine
DX: E04.1 Nontoxic single thyroid nodule (principal); I65.23 Occlusion and stenosis of bilateral carotid arteries
CPT/HCPCS: 76536; 93880

== ENCOUNTER → 2020-07-30 10:04 | Outpatient (CLI) | payer MEDICARE, OTHER, SELFPAY ==
[2020-03-18 08:26] VITALS: BMI 24.8
--- NOTE | 2020-07-30 10:08 | VDLE_ITS ---
Reason For Study: Bilateral leg edema RIGHT LEFT GSV is normal. GSV is normal. CFV is compressible, spontaneous, phasic, CFV is compressible, spontaneous, phasic, competent and demonstrates normal competent, and demonstrates normal augmentation. augmentation. FV is compressible, spontaneous, phasic, FV is compressible, spontaneous, phasic, competent and demonstrates normal competent and demonstrates normal augmentation. augmentation. POP V is compressible, spontaneous, phasic, POP V is compressible, spontaneous, phasic, competent and demonstrates normal competent and demonstrates normal augmentation. augmentation. T/P Trunk is compressible. T/P Trunk is compressible. PTV is compressible. PTV is compressible. RT PerV is compressible. LT PerV is compressible. Procedure This is a venous duplex using B-mode, color flow and spectral Doppler. Exam performed in department. A preliminary report was called and/or faxed to Emiliano. Interpretation Summary Deep veins of the lower extremities are bilaterally patent and compressible segmentally. There is no evidence of deep vein thrombosis on either side. Valvular competence appears intact within the proximal deep venous systems bilaterally. The great saphenous veins appear bilaterally patent and compressible segmentally. Ordering Physician: Adrienne Cummings Referring Physician: Adrienne Cummings Performed By: More Osorio RVT
== END ==
PROVIDERS: PCP Internal Medicine; Referring Provider Internal Medicine; Visit Provider Internal Medicine
DX: R60.0 Localized edema (principal)
CPT/HCPCS: 93970

== ENCOUNTER → 2021-04-03 08:22 | Outpatient (CLI) | payer MEDICARE, OTHER, SELFPAY ==
[2021-01-17 09:52] VITALS: BMI 25.2
--- NOTE | 2021-04-03 08:57 | RAD_ITS ---
EXAM DESCRIPTION: PA and lateral CHEST CLINICAL HISTORY: 80 years Male, SOB SOB COMPARISON: Previous portable chest obtained on 07/21/2013 FINDINGS: The thorax is intact. The heart and mediastinum appear to be within normal limits. The lungs appear to be well areated without evidence of pneumonic consolidation or pleural effusion. RAD/Chest PA and Lateral IMPRESSION: Normal chest. Electronically Signed: Thomas Diamond DO at 9:10 EDT Tel , Service support ,
[2021-04-03 09:09] LABS: Erythrocyte Sedimentation Rate 3 mm/hr (0-20)
[2021-04-03 09:12] LABS: Absolute Lymphocyte Count 0.84 X10^3/uL (0.83-4.51); Absolute Neutrophil Count 1.9 X10^3/uL (2.0-7.7); Basophil# 0.01 X10^3/uL; Basophil% 0.3 % (0-1); Hematocrit 47.4 % (40-54); Hemoglobin 15.3 g/dL (13.0-16.5); Lymphocyte # 0.84 X10^3/ul (0.83-4.51); Lymphocyte % 25.8 % (19-41); Mean Corp Hgb Conc 32.3 g/dL (32-36); Mean Corpuscular Hgb 28.8 pg (27.0-32.0); Mean Corpuscular Volume 89.3 fL (80-94); Mean Platelet Vol. 9.9 fl (6.2-12.0); Monocyte# 0.52 X10^3/uL; NRBC Flagged by Analyzer 0 % (0-5); Neutrophil # 1.88 X10^3/uL (2.7-7.7); Neutrophil % 57.6 % (47-70); Platelet Count 168 K/mm3 (150-450); RBC Distribution Width CV 13.9 % (11.6-14.6); RBC Distribution Width SD 45.8 fl (35.1-43.9); Red Blood Count 5.31 M/mm3 (4.6-6.2); White Blood Count 3.3 K/mm3 (4.4-11.0)
[2021-04-03 09:20] LABS: ALB/GLOB Ratio 0.9 RATIO (0.9-2.4); AST(SGOT) 23 U/L (15-37); Alanine Aminotransfer ALT/SGPT 30 U/L (16-61); Albumin, Serum 3.4 g/dL (3.2-5.0); Alkaline Phosphatase 51 U/L (45-117); Anion Gap 8 (5-15); BUN 20 mg/dL (7-18); BUN/Creat Ratio 18.5 RATIO (10-20); Calcium,Total 8.3 mg/dL (8.5-10.1); Chloride 99 mmol/L (98-107); Creatinine, Serum 1.08 mg/dL (0.70-1.30); EST Glomerular Filtration Rate 70 mL/min (>60); Est Glom Filt Rate - Afr Amer 85 mL/min (>60); Globulin 3.6 g/dL (2.2-4.2); Glucose 106 mg/dL (74-106); Potassium 3.9 mmol/L (3.5-5.1); Sodium Level 136 mmol/L (136-145)
[2021-04-03 10:23] LABS: D-Dimer Quantitative (DVT/PE) 0.77 FEU/ug/m (0.27-0.49)
== END ==
LOC: MTLAB 08:25 → LAB 08:31
PROVIDERS: PCP Internal Medicine; Referring Provider Internal Medicine; Visit Provider Internal Medicine
DX: R52 Pain, unspecified (principal); R68.83 Chills (without fever); R06.02 Shortness of breath
CPT/HCPCS: 36415; 71046; 80053; 85025; 85379; 85652

== ENCOUNTER → 2021-04-03 11:36 | Outpatient (CLI) | payer MEDICARE, OTHER, SELFPAY ==
[2021-01-17 09:52] VITALS: BMI 25.2
--- NOTE | 2021-04-03 12:10 | CT_ITS ---
EXAM: CT ANGIOGRAPHY CHEST WITHOUT AND WITH INTRAVENOUS CONTRAST : 1940 CLINICAL INDICATION: ELEVATED DDIMER TECHNIQUE: Helically acquired angiography images were obtained of the chest without and with intravenous contrast. This CT exam was performed using one or more of the following dose reduction techniques: automated exposure control, adjustment of the mA and/or kV according to patient size, and/or use of iterative reconstruction technique. This report was created using [employer] report generation technology. MIP reconstructed images were created and reviewed. CONTRAST: IV 100mL [id number] COMPARISON: None. FINDINGS: PULMONARY ARTERIES: Unremarkable. Normal in caliber. No evidence of pulmonary embolism. AORTA: Unremarkable. Normal in caliber. No evidence of dissection. GREAT VESSELS OF AORTIC ARCH: Unremarkable. Normal in caliber. No evidence of dissection. LUNGS AND PLEURAL SPACES: There is a rounded area of groundglass opacity in the right upper lobe. There are also rounded areas of groundglass opacity seen within the right and left lower lobes. There is no focal consolidation. No mass. No pleural effusion or thickening. No pneumothorax. HEART: Unremarkable. Heart size is normal. No pericardial effusion. No signs of right heart strain. MEDIASTINUM: Unremarkable. No mediastinal or hilar adenopathy. Esophagus is unremarkable. No hiatal hernia. THYROID: Unremarkable. No thyroid lesions. BONES/JOINTS: Unremarkable. No suspicious lytic or blastic abnormality. CT/CTA Chest W/WO Contrast IMPRESSION: 1. No evidence of pulmonary embolus. 2. Rounded areas of groundglass opacity seen within the right upper lobe and both lower lobes. Imaging features can be seen with COVID 19 pneumonia, though are nonspecific and can occur with a variety of infectious and noninfectious processes Individualized dose optimization techniques were used for this CT. at 1333 Reported and signed by: Collin Salas MD Electronically Signed: Collin Salas MD at 13:32 EDT Tel , Service support ,
== END ==
PROVIDERS: PCP Internal Medicine; Referring Provider Internal Medicine; Visit Provider Internal Medicine
DX: R79.89 Other specified abnormal findings of blood chemistry (principal); R52 Pain, unspecified; R68.83 Chills (without fever); R06.02 Shortness of breath
CPT/HCPCS: 36415; 71046; 71275; 80053; 85025; 85379; 85652; Q9967; A4216

== ENCOUNTER 2021-04-07 15:31 | Outpatient (CLI) | payer MEDICARE, OTHER, SELFPAY ==
[2021-04-07 11:31] VITALS: BMI 25.2
[2021-04-07 15:15] VITALS: BP 121/62; PULSE 65; RESP 20; TEMP 36.6; O2SAT 94; BMI 24.3
[2021-04-07] MEDS: 0.9% Saline Lock 10 ML Syringe IV (16:33)
[2021-04-07 16:35] VITALS: BP 112/64; PULSE 60; RESP 16; TEMP 36.2; O2SAT 95
[2021-04-07 17:04] VITALS: BP 102/69; PULSE 57; RESP 18; TEMP 36.3; O2SAT 97
[2021-04-07 17:34] VITALS: BP 103/61; PULSE 58; RESP 18; TEMP 36.4; O2SAT 94
[2021-04-07 18:04] VITALS: BP 114/68; PULSE 58; RESP 18; TEMP 36.6; O2SAT 97
== END 2021-04-07 18:13 | disposition home or self-care (01) ==
LOC: ICUOUT 15:32 → ICU 15:33
PROVIDERS: PCP Internal Medicine; Referring Provider Nurse Practitioner Acute Care; Visit Provider Nurse Practitioner Acute Care
DX: U07.1 COVID-19 (principal); Z23 Encounter for immunization
CPT/HCPCS: J7050; M0243; A4216; Q0244

== ENCOUNTER → 2021-06-12 08:48 | Outpatient (CLI) | payer MEDICARE, OTHER, SELFPAY ==
--- NOTE | 2021-06-12 08:54 | CDU_ITS ---
Reason For Study: carotid stenosis Rt. Velocities/BP Lt. Velocities/BP Prox CCA 94.3/13.4 cm/sec. Prox CCA 72.1/12.6 cm/sec. Mid CCA 57.8/9.5 cm/sec. Mid CCA 74.0/15.4 cm/sec. Dist CCA 61.7/12.1 cm/sec. Dist CCA 63.6/10.7 cm/sec. Prox ICA 55.2/9.5 cm/sec. Prox ICA 54.1/8.8 cm/sec. Mid ICA 49.9/14.7 cm/sec. Mid ICA 49.4/13.5 cm/sec. Dist ICA 52.6/18.6 cm/sec. Dist ICA 63.6/20.1 cm/sec. Rt. ICA/CCA = 1.0. Lt. ICA/CCA = .9. Prox ECA 87.8/8.2 cm/sec. Prox ECA 81.5/6.9 cm/sec. Rt. Vert. 43.0/11.6 cm/sec. Lt. Vert. 22.8/5.2 cm/sec. Right Extracranial There is intimal thickening but no significant atherosclerotic plaque noted in the right common carotid artery. There is heterogeneous, irregular atherosclerotic plaque noted in the right internal carotid artery. There is intimal thickening but no significant atherosclerotic plaque noted in the right external carotid artery. Antegrade flow is noted in the right vertebral artery. Left Extracranial There is intimal thickening but no significant atherosclerotic plaque noted in the left common carotid artery. There is heterogeneous, irregular atherosclerotic plaque noted in the left internal carotid artery. There is intimal thickening but no significant atherosclerotic plaque noted in the left external carotid artery. Antegrade flow is noted in the left vertebral artery. Procedure Carotid Duplex 33743. This is a Carotid Duplex examination using B-mode, color flow and specral Doppler. The exam was diagnostic. Exam performed in department. VL/Carotid Duplex Ultrasound Interpretation Summary Minimal irregular plaque in the proximal right internal carotid artery with les s than 50% stenosis Less than 50% stenosis right external carotid artery Minimal irregular plaque in the proximal left internal carotid artery with less than 50% stenosis Less than 50% stenosis left external carotid artery Patent antegrade vertebral arteries bilaterally No change from the previous examination July 04, 2020 Ordering Physician: Adrienne Cummings Performed By: Desmond Argueta RVT
--- NOTE | 2021-06-12 09:12 | US_ITS ---
INDICATION: NODULE EXAMINATION: Ultrasound US Thyroid (eg thyroid, parathyroid, parotid) TECHNIQUE: Rodriguez scale and color doppler imaging was performed of the thyroid gland. COMPARISON: Thyroid ultrasound 07/04/2020 and 07/18/2019 and 06/30/2018 FINDINGS: RIGHT THYROID LOBE: 4.7 x 1.1 x 1.6 cm. LEFT THYROID LOBE: 5.1 x 1.5 x 1.4 cm. ISTHMUS: 2.4 mm. No thyroid nodules are present within the isthmus. Multiple nodules are seen in the right left thyroid lobes. 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 None of these are suspicious and do not merit follow-up imaging. In the posterior aspect of the upper right thyroid lobe is a 7 x 5 x 6 mm solid, hypoechoic, wider than tall, circumscribed nodule with no echogenic foci. This is unchanged compared to prior exam from 07/18/2019. This nodule was not exemplified on the exam from 2018 given subcentimeter size, no follow-up is recommended. Hypoechoic nodule with increased through transmission and low-level internal echoes seen in the inferior left thyroid lobe measures 6 x 5 x 6 mm. This measured 6 x 4 x 5 mm and has similar appearance on the 2018 exam. US/Thyroid IMPRESSION: No appreciable change compared with prior imaging from 2017 and 2018 and 2019. 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 Subcentimeter solid nodule right thyroid lobe is unchanged compared with 2019 exam and due to size does not merit further follow-up imaging. Cystic-appearing nodule with internal debris, left thyroid lobe is also subcentimeter in size and does not merit follow-up imaging. Electronically Signed: Janak Munguia DO at 20:37 EDT Tel , Service support ,
== END ==
PROVIDERS: PCP Internal Medicine; Referring Provider Internal Medicine; Visit Provider Internal Medicine
DX: E04.1 Nontoxic single thyroid nodule (principal); I65.23 Occlusion and stenosis of bilateral carotid arteries
CPT/HCPCS: 76536; 93880

== ENCOUNTER → 2021-08-14 08:17 | Outpatient (CLI) | payer MEDICARE, OTHER, SELFPAY ==
[2021-08-14 10:40] LABS: PSA,Total- Diagnostic 1.97 ng/mL (0.0-4.0)
== END ==
PROVIDERS: PCP Internal Medicine; Referring Provider Urology; Visit Provider Urology
DX: R97.20 Elevated prostate specific antigen [PSA] (principal)
CPT/HCPCS: 36415; 84153

== ENCOUNTER 2021-09-02 08:06 | Outpatient (CLI) | payer MEDICARE, OTHER, SELFPAY ==
[2021-09-02 08:36] LABS: Absolute Lymphocyte Count 1.46 X10^3/uL (0.83-4.51); Absolute Neutrophil Count 3.5 X10^3/uL (2.0-7.7); Basophil# 0.03 X10^3/uL; Basophil% 0.5 % (0-1); Eosinophil# 0.15 X10^3/uL; Eosinophils% 2.6 % (0-5); Hematocrit 49.2 % (40-54); Hemoglobin 15.8 g/dL (13.0-16.5); Lymphocyte # 1.46 X10^3/ul (0.83-4.51); Lymphocyte % 25.3 % (19-41); Mean Corp Hgb Conc 32.1 g/dL (32-36); Mean Corpuscular Hgb 28.4 pg (27.0-32.0); Mean Corpuscular Volume 88.3 fL (80-94); Mean Platelet Vol. 9.9 fl (6.2-12.0); Monocyte# 0.62 X10^3/uL; Monocyte% 10.7 % (0-10); NRBC Flagged by Analyzer 0 % (0-5); Neutrophil # 3.49 X10^3/uL (2.7-7.7); Neutrophil % 60.4 % (47-70); Platelet Count 257 K/mm3 (150-450); RBC Distribution Width CV 13.2 % (11.6-14.6); RBC Distribution Width SD 42.8 fl (35.1-43.9); Red Blood Count 5.57 M/mm3 (4.6-6.2); White Blood Count 5.8 K/mm3 (4.4-11.0)
[2021-09-02 09:11] LABS: BUN 17 mg/dL (7-18); Creatinine, Serum 0.91 mg/dL (0.70-1.30); EST Glomerular Filtration Rate 86 mL/min (>60); Glucose 114 mg/dL (74-106)
[2021-09-02 09:12] LABS: AST(SGOT) 16 U/L (15-37); Alanine Aminotransfer ALT/SGPT 33 U/L (16-61); Albumin, Serum 3.4 g/dL (3.2-5.0); Alkaline Phosphatase 66 U/L (45-117); Anion Gap 6 (5-15); BUN/Creat Ratio 18.7 RATIO (10-20); Calcium,Total 9.1 mg/dL (8.5-10.1); Chloride 105 mmol/L (98-107); Est Glom Filt Rate - Afr Amer 104 mL/min (>60); Globulin 3.5 g/dL (2.2-4.2); Protein, Total 6.9 g/dL (6.4-8.2); Sodium Level 143 mmol/L (136-145)
[2021-09-02 09:24] LABS: Microalbumin,Random Urine 25.3 mg/L (NO RANGE EST.); Microalbumin:Creatinine Ratio 39.2 mg/g CRE (<30 mg/g CRE)
== END 2021-09-02 23:59 | disposition short-term general hospital (02) ==
PROVIDERS: PCP Internal Medicine; Referring Provider Internal Medicine; Visit Provider Internal Medicine
DX: E11.9 Type 2 diabetes mellitus without complications (principal)
CPT/HCPCS: 36415; 80053; 82043; 82570; 85025

== ENCOUNTER → 2022-04-02 | Outpatient (CLI) | payer MEDICARE, OTHER, SELFPAY | END | disposition home or self-care (01) | LOC: PSN 08:20 | PROVIDERS: PCP Internal Medicine; Referring Provider Internal Medicine; Visit Provider Internal Medicine | DX: I49.49 Other premature depolarization (principal) | CPT/HCPCS: 93225; 93226 ==

== ENCOUNTER → 2022-07-17 | Outpatient (CLI) | payer MEDICARE, OTHER, SELFPAY ==
--- NOTE | 2022-07-17 12:54 | US_ITS ---
STUDY: THYROID ULTRASOUND REASON FOR EXAM: Male, 82 years old. Thyroid nodule. TECHNIQUE: Ultrasound evaluation of the thyroid was performed with real-time and static perez-scale imaging. COMPARISON: June 12, 2021. FINDINGS: RIGHT LOBE: The right lobe of the thyroid gland measures 4.5 x 1.1 x 2.0 cm. There is a homogeneous echotexture. Posteriorly in the mid thyroid there is a 0.8 x 0.6 x 0.6 cm mildly hypoechoic nodule which is wider than it is tall. In the upper pole there is a 0.3 x 0.5 x 0.5 cm anechoic structure with internal echoes. LEFT LOBE: The left lobe of the thyroid gland measures 5.0 x 1.4 x 1.9 cm. There is a homogeneous echotexture. In the upper pole there is a 0.8 x 0.6 x 0.6 cm hypoechoic nodule. The lower pole there is a 0.6 x 0.4 x 0.5 cm mixed cystic and solid nodule. ISTHMUS: The isthmus measures 0.5 cm. The regional lymph nodes are normal. US/Thyroid IMPRESSION: 1. Bilateral thyroid nodules. 2. Slight increase in size of the apical colon nodule in the posterior right thyroid gland compared to prior study. This is considered moderately suspicious. No FNA or follow-up is necessary given its small size. This nodule is grossly stable since July 18, 2019. 3. Hypoechoic nodule in the left thyroid. Again this is moderately suspicious but requires no FNA or follow-up size this is also essentially stable when compared to the May 18, 2019 study. Electronically Signed: Jarad Li DO at 17:40 EST ,
--- NOTE | 2022-07-17 12:54 | CDU_ITS ---
Reason For Study: CAROTID STENOSIS Rt. Velocities/BP Lt. Velocities/BP Prox CCA 69.5/9.1 cm/sec. Prox CCA 130.8/32.1 cm/sec. Mid CCA 54.4/5.3 cm/sec. Mid CCA 112.5/28.5 cm/sec. Dist CCA 46.9/11.0 cm/sec. Dist CCA 79.6/19.4 cm/sec. Prox ICA 83.7/13.8 cm/sec. Prox ICA 64.9/9.7 cm/sec. Mid ICA 75.2/14.7 cm/sec. Mid ICA 61.3/9.7 cm/sec. Dist ICA 65.8/17.6 cm/sec. Dist ICA 68.6/15.8 cm/sec. Rt. ICA/CCA = 83.7/54.4=1.5. Lt. ICA/CCA = 68.6/112.5=0.6. Prox ECA 92.2/12.8 cm/sec. Prox ECA 107.0/12.1 cm/sec. Rt. Vert. 42.6/10.6 cm/sec. Lt. Vert. 31.4/5.9 cm/sec. Right Extracranial There is homogeneous, smooth atherosclerotic plaque noted in the right common carotid artery. There is intimal thickening but no significant atherosclerotic plaque noted in the right internal carotid artery. There is no significant atherosclerotic plaque noted in the right external carotid artery. Antegrade flow is noted in the right vertebral artery. Left Extracranial There is heterogeneous, irregular atherosclerotic plaque noted in the left common carotid artery. There is homogeneous, smooth atherosclerotic plaque noted in the left internal carotid artery. There is heterogeneous, smooth atherosclerotic plaque noted in the left external carotid artery. Antegrade flow is noted in the left vertebral artery. Procedure Carotid Duplex [id number]. This is a Carotid Duplex examination using B-mode, color flow and specral Doppler. Exam performed in department. VL/Carotid Duplex Ultrasound Interpretation Summary No significant atherosclerotic plaque or stenosis noted in the right internal c arotid artery. Mild (<50%) stenosis left extracranial internal carotid. Flow within the vertebral a rteries is antegrade bilaterally. Ordering Physician: Adrienne Cummings Referring Physician: Adrienne Cummings Performed By: Lisa Person, ARTIE, RVT
== END | disposition home or self-care (01) ==
LOC: CVS 12:53
PROVIDERS: PCP Internal Medicine; Referring Provider Internal Medicine; Visit Provider Internal Medicine
DX: I65.23 Occlusion and stenosis of bilateral carotid arteries (principal); E04.1 Nontoxic single thyroid nodule
CPT/HCPCS: 76536; 93880

== ENCOUNTER → 2022-09-03 | Outpatient (CLI) | payer MEDICARE, OTHER, SELFPAY ==
[2022-09-03 12:10] LABS: PSA,Total - Annual Screen 2.36 ng/mL (0.00-4.00)
== END | disposition home or self-care (01) ==
LOC: LAB 09:15
PROVIDERS: PCP Internal Medicine; Visit Provider Registered Nurse
DX: Z12.5 Encounter for screening for malignant neoplasm of prostate (principal)
CPT/HCPCS: 36415; 84153; G0103

== ENCOUNTER → 2023-03-16 | Outpatient (CLI) | payer MEDICARE, OTHER, SELFPAY ==
[2023-03-16 12:52] LABS: Vitamin B12 563 pg/mL (211-911)
[2023-03-16 13:26] LABS: AST(SGOT) 21 U/L (15-37); Alanine Aminotransfer ALT/SGPT 27 U/L (16-61); Albumin, Serum 3.5 g/dL (3.2-5.0); Alkaline Phosphatase 70 U/L (45-117); Anion Gap 5 (5-15); BUN 17 mg/dL (7-18); Calcium,Total 8.7 mg/dL (8.5-10.1); Chloride 106 mmol/L (98-107); EST Glomerular Filtration Rate 87 mL/min (>60); Est Glom Filt Rate - Afr Amer 105 mL/min (>60); Globulin 3.5 g/dL (2.2-4.2); Glucose 120 mg/dL (74-106); Potassium 3.9 mmol/L (3.5-5.1); Sodium Level 138 mmol/L (136-145); Thyroid Stim Hormone (TSH) 1.44 uIU/mL (0.358-3.74)
[2023-03-16 13:51] LABS: Absolute Lymphocyte Count 1.32 X10^3/uL (0.83-4.51); Absolute Neutrophil Count 4.1 X10^3/uL (2.0-7.7); Basophil# 0.04 X10^3/uL; Basophil% 0.6 % (0-1); Eosinophil# 0.23 X10^3/uL; Eosinophils% 3.6 % (0-5); Hematocrit 48.3 % (40-54); Hemoglobin 15.7 g/dL (13.0-16.5); Lymphocyte # 1.32 X10^3/ul (0.83-4.51); Lymphocyte % 20.7 % (19-41); Mean Corp Hgb Conc 32.5 g/dL (32-36); Mean Corpuscular Volume 89.3 fL (80-94); Mean Platelet Vol. 10.7 fl (6.2-12.0); Monocyte# 0.66 X10^3/uL; Monocyte% 10.4 % (0-10); NRBC Flagged by Analyzer 0 % (0-5); Neutrophil # 4.08 X10^3/uL (2.7-7.7); Neutrophil % 64.1 % (47-70); Platelet Count 230 K/mm3 (150-450); RBC Distribution Width CV 14.3 % (11.6-14.6); RBC Distribution Width SD 46.2 fl (35.1-43.9); Red Blood Count 5.41 M/mm3 (4.6-6.2); White Blood Count 6.4 K/mm3 (4.4-11.0)
[2023-03-18 16:09] LABS: Free Lambda Light Chains 11.8 mg/L (5.7-26.3)
== END | disposition home or self-care (01) ==
LOC: MTLAB 10:15
PROVIDERS: PCP Internal Medicine; Referring Provider Psychiatry & Neurology Neurology; Visit Provider Psychiatry & Neurology Neurology
DX: G62.9 Polyneuropathy, unspecified (principal); I10 Essential (primary) hypertension
CPT/HCPCS: 36415; 80053; 82607; 82746; 83883; 84425; 84443; 85025

== ENCOUNTER → 2023-07-16 | Outpatient (CLI) | payer MEDICARE, OTHER, SELFPAY ==
--- NOTE | 2023-07-16 13:49 | CDU_ITS ---
Reason For Study: Bilateral carotid stenosis Rt. Velocities/BP Lt. Velocities/BP Prox CCA 61.7/8.8 cm/sec. Prox CCA 87.2/13.5 cm/sec. Mid CCA 60.7/8.8 cm/sec. Mid CCA 64.5/8.8 cm/sec. Dist CCA 49.4/9.7 cm/sec. Dist CCA 53.2/9.7 cm/sec. Prox ICA 62.6/6 cm/sec. Prox ICA 51.5/5.9 cm/sec. Mid ICA 49.4/11.6 cm/sec. Mid ICA 49.3/12.3 cm/sec. Dist ICA 72.1/20.1 cm/sec. Dist ICA 59.3/16.6 cm/sec. Rt. ICA/CCA = 1.19. Lt. ICA/CCA = 0.92. Prox ECA 83.4/6.9 cm/sec. Prox ECA 70.2/6 cm/sec. Rt. Vert. 38.1/9.7 cm/sec. Lt. Vert. 25.3/4.8 cm/sec. Right Extracranial There is homogeneous, smooth atherosclerotic plaque noted in the right common carotid artery. There is homogeneous, smooth atherosclerotic plaque noted in the right internal carotid artery. There is intimal thickening but no significant atherosclerotic plaque noted in the right external carotid artery. Antegrade flow is noted in the right vertebral artery. There is heterogeneous, irregular atherosclerotic plaque noted in the right bulb. Left Extracranial There is homogeneous, smooth atherosclerotic plaque noted in the left common carotid artery. There is intimal thickening but no significant atherosclerotic plaque noted in the left internal carotid artery. There is homogeneous, smooth atherosclerotic plaque noted in the left external carotid artery. Antegrade flow is noted in the left vertebral artery. There is heterogeneous, irregular atherosclerotic plaque noted in the left bulb. Procedure This is a Carotid Duplex examination using B-mode, color flow and specral Doppler. Carotid Duplex [id number]. Exam performed in department. VL/Carotid Duplex Ultrasound Interpretation Summary Mild (<50%) stenosis right extracranial internal carotid. Normal left extracranial internal carotid. Patent and antegrade vertebrals bilaterally. Ordering Physician: Adrienne Cummings Referring Physician: Adrienne Cummings Performed By: More Osorio RVT
--- NOTE | 2023-07-16 13:49 | US_ITS ---
STUDY: THYROID ULTRASOUND REASON FOR EXAM: Male, 83 years old. thyroid nodule TECHNIQUE: Ultrasound evaluation of the thyroid was performed with real-time and static perez-scale imaging. COMPARISON: 07/17/2022 FINDINGS: RIGHT LOBE: The right lobe of the thyroid gland measures 5.0 x 1.5 x 1.7 cm. There is a homogeneous echotexture. There are 2 measured nodules: 1. 1.0 x 0.8 x 0.7 cm (previously measured 0.8 x 0.6 x 0.6 cm). This nodule is solid or almost completely solid, hypoechoic, [id number], smoothly marginated and contains no echogenic foci. TI-RADS points: 4. TI-RADS category: TR4. This nodule is moderately suspicious. Recommend follow-up thyroid ultrasounds at 1, 2, 3 and 5 years. 2. 6 x 5 x 3 mm (stable). This nodule is mixed cystic and solid, hypoechoic, [id number], smoothly marginated and contains no echogenic foci. TI-RADS points: 3. TI-RADS category: TR3. This nodule is mildly suspicious but no FNA or follow-up is necessary given the small size of this nodule. LEFT LOBE: The left lobe of the thyroid gland measures 4.6 x 1.7 x 1.6 cm. There is a homogeneous echotexture. There are 2 measurable nodules: 1. 7 x 6 x 5 mm (stable). This nodule is solid or almost completely solid, hypoechoic, [id number], smoothly marginated and contains no echogenic foci. TI-RADS points: 4. TI-RADS category: TR4. This nodule is moderately suspicious but no FNA or follow-up is necessary given the small size of this nodule. 2. 7 x 5 x 5 mm. 2. This nodule is mixed cystic and solid, hypoechoic, [id number]-[id number], smoothly marginated and contains no echogenic foci. TI-RADS points: 3. TI-RADS category: TR3. This nodule is mildly suspicious but no FNA or follow-up is necessary given the small size of this nodule. ISTHMUS: The isthmus measures 3 mm. The regional lymph nodes are normal. US/Thyroid IMPRESSION: 1. Thyroid nodules with slight increase size of right thyroid lobe dominant nodule. Follow up ultrasound in one year recommended. Alternatively, FNA could be performed given change in size. Electronically Signed: Alexandre Ledesma MD ([place]) at 19:59 EST ,
== END | disposition home or self-care (01) ==
LOC: US 13:48
PROVIDERS: PCP Internal Medicine; Referring Provider Internal Medicine; Visit Provider Internal Medicine
DX: E04.1 Nontoxic single thyroid nodule (principal); I65.23 Occlusion and stenosis of bilateral carotid arteries
CPT/HCPCS: 76536; 93880

== ENCOUNTER → 2023-09-09 | Outpatient (CLI) | payer MEDICARE, OTHER, SELFPAY ==
[2023-09-09 11:15] LABS: PSA,Total - Annual Screen 2.75 ng/mL (0.00-4.00)
== END | disposition home or self-care (01) ==
LOC: LAB 09:16
PROVIDERS: PCP Internal Medicine; Referring Provider Nurse Practitioner; Visit Provider Nurse Practitioner
DX: Z12.5 Encounter for screening for malignant neoplasm of prostate (principal)
CPT/HCPCS: 36415; 84153; G0103

== ENCOUNTER → 2024-05-16 | Outpatient (CLI) | payer MEDICARE, OTHER, SELFPAY ==
--- NOTE | 2024-05-16 12:19 | US_ITS ---
STUDY: THYROID ULTRASOUND REASON FOR EXAM: Male, 83 years old. Thyroid nodule TECHNIQUE: Ultrasound evaluation of the thyroid was performed with real-time and static perez-scale imaging. COMPARISON: 07/16/2023. FINDINGS: RIGHT LOBE: The right lobe of the thyroid gland measures 4.6 x 1.2 x 2.1 cm. There is a homogeneous echotexture. Solid hypoechoic nodule 1 in the posterior aspect of the mid thyroid lobe measuring 0.76 x 0.60 x 0.66 cm. Anechoic cyst nodule 2 in the medial aspect of the right lower thyroid lobe at the level of the thyroid isthmus. This measures 0.66 x 0.43 x 0.64 cm. LEFT LOBE: The left lobe of the thyroid gland measures 5.0 x 1.6 x 1.6 cm. There is a homogeneous echotexture. Solid hypoechoic nodule 1 in the medial aspect of the upper thyroid lobe measures 0.81 x 0.5 x 0.66 cm. Nodule 2 in the central aspect of the mid thyroid lobe is anechoic cyst with internal septation. This measures 0.50 x 0.39 x 0.46 cm. ISTHMUS: The isthmus measures 0.4 cm. . US/Thyroid IMPRESSION: 1. Solid hypoechoic nodule 1 in the posterior aspect of the mid thyroid lobe measures 0.76 x 0.60 x 0.66 cm, previously 1.0 x 0.8 x 0.7 cm. TI-RADS points: 4. TI-RADS category: TR4. This nodule is moderately suspicious but no FNA or follow-up is necessary given the small size of this nodule. 2. Nodule 2 in the medial aspect of the right lower thyroid lobe is at the level of the thyroid isthmus. This is anechoic cyst. This measures 0.66 x 0.43 x 0.64 cm, previously 0.6 x 0.5 x 0.3 cm. TI-RADS points: 0. TI-RADS category: TR1. This nodule is benign and no FNA or follow-up is necessary. 3. Solid hypoechoic nodule 1 in the medial aspect of the left upper thyroid lobe measures 0.81 x 0.5 x 0.6 cm, previously 0.7 x 0.6 x 0.5 cm. TI-RADS points: 4. TI-RADS category: TR4. This nodule is moderately suspicious but no FNA or follow-up is necessary given the small size of this nodule. 4. Nodule 2 in the central aspect of the left mid thyroid lobe is anechoic cyst containing internal septation. This measures 0.50 x 0.39 x 0.46 cm, previously 0.73 x 0.50 x 0.47 cm. TI-RADS points: 0. TI-RADS category: TR1. This nodule is benign and no FNA or follow-up is necessary. Electronically Signed: Dougie العراقي MD at 14:23 EDT ,
--- NOTE | 2024-05-16 12:19 | CDU_ITS ---
Reason For Study: Bilateral Carotid Stenosis Rt. Velocities/BP Lt. Velocities/BP Prox CCA 88.3/18.3 cm/sec. Prox CCA 80.9/16.0 cm/sec. Mid CCA 54.7/12.2 cm/sec. Mid CCA 58.5/10.3 cm/sec. Dist CCA 62.3/14.1 cm/sec. Dist CCA 51.9/9.4 cm/sec. Prox ICA 45.3/13.1 cm/sec. Prox ICA 63.2/12.2 cm/sec. Mid ICA 61.3/19.7 cm/sec. Mid ICA 53.8/16.9 cm/sec. Dist ICA 75.5/22.6 cm/sec. Dist ICA 74.8/20.8 cm/sec. Rt. ICA/CCA = 1.4. Lt. ICA/CCA = 1.3. Prox ECA 64.1/8.4 cm/sec. Prox ECA 84.5/8.7 cm/sec. Rt. Vert. 32.7/9.2 cm/sec. Lt. Vert. 28.9/6.8 cm/sec. Right Extracranial There is homogeneous, smooth atherosclerotic plaque noted in the right common carotid artery. There is homogeneous, smooth atherosclerotic plaque noted in the right internal carotid artery. There is intimal thickening but no significant atherosclerotic plaque noted in the right external carotid artery. Antegrade flow is noted in the right vertebral artery. There is heterogeneous, irregular atherosclerotic plaque noted in the right bulb. Left Extracranial There is heterogeneous, irregular atherosclerotic plaque noted in the left common carotid artery. There is heterogeneous, irregular atherosclerotic plaque noted in the left internal carotid artery. There is intimal thickening but no significant atherosclerotic plaque noted in the left external carotid artery. Antegrade flow is noted in the left vertebral artery. There is heterogeneous, irregular atherosclerotic plaque noted in the left bulb. Procedure Carotid Duplex [id number]. This is a Carotid Duplex examination using B-mode, color flow and specral Doppler. The exam was diagnostic. Exam performed in department. VL/Carotid Duplex Ultrasound Interpretation Summary Mild (<50%) stenosis right extracranial internal carotid. Mild (<50%) stenosis left extracranial internal carotid. Patent and antegrade vertebrals bilaterally. Ordering Physician: Adrienne Cummings Referring Physician: Adrienne Cummings Performed By: Marcelo Sinclair RVT
== END | disposition home or self-care (01) ==
LOC: CVS 12:15
PROVIDERS: PCP Internal Medicine; Referring Provider Internal Medicine; Visit Provider Internal Medicine
DX: I65.23 Occlusion and stenosis of bilateral carotid arteries (principal); E04.1 Nontoxic single thyroid nodule
CPT/HCPCS: 76536; 93880

== ENCOUNTER → 2025-05-04 | Outpatient (CLI) | payer MEDICARE, OTHER, SELFPAY ==
--- NOTE | 2025-05-04 08:06 | CDU_ITS ---
Reason For Study Reason For Study: Bilateral Carotid Stenosis Rt. Velocities/BP Lt. Velocities/BP Prox CCA 77/16 cm/sec. Prox CCA 93/16 cm/sec. Mid CCA 64/12 cm/sec. Mid CCA 87/15 cm/sec. Dist CCA 59/14 cm/sec. Dist CCA 79/12 cm/sec. Prox ICA 46/16 cm/sec. Prox ICA 71/12 cm/sec. Mid ICA 65/21 cm/sec. Mid ICA 52/13 cm/sec. Dist ICA 64/20 cm/sec. Dist ICA 82/21 cm/sec. Rt. ICA/CCA = 1.0. Lt. ICA/CCA = 0.9. Prox ECA 81/10 cm/sec. Prox ECA 78/9 cm/sec. Rt. Vert. 37/10 cm/sec. Lt. Vert. 29/6 cm/sec. Right Extracranial There is heterogeneous, irregular atherosclerotic plaque noted in the right common carotid artery. There is heterogeneous, irregular atherosclerotic plaque noted in the right internal carotid artery. There is intimal thickening but no significant atherosclerotic plaque noted in the right external carotid artery. Antegrade flow is noted in the right vertebral artery. Left Extracranial There is heterogeneous, irregular atherosclerotic plaque noted in the left common carotid artery. There is heterogeneous, irregular atherosclerotic plaque noted in the left internal carotid artery. There is intimal thickening but no significant atherosclerotic plaque noted in the left external carotid artery. Antegrade flow is noted in the left vertebral artery. Procedure Carotid Duplex [id number]. This is a Carotid Duplex examination using B-mode, color flow and specral Doppler. Exam performed in department. VL/Carotid Duplex Ultrasound Interpretation Summary Mild (<50%) stenosis right extracranial internal carotid. Mild (<50%) stenosis left extracranial internal carotid. Patent and antegrade vertebrals bilaterally. Ordering Physician: Adrienne Cummings Referring Physician: Adrienne Cummings Performed By: Daysi Phillip, ARTIE, RVT
== END | disposition home or self-care (01) ==
LOC: CVS 07:56
PROVIDERS: PCP Internal Medicine; Referring Provider Internal Medicine; Visit Provider Internal Medicine
DX: I65.23 Occlusion and stenosis of bilateral carotid arteries (principal)
CPT/HCPCS: 93880